=== PATIENT | female | born 1985 | race Caucasian/White ===

== ENCOUNTER 2023-02-25 10:09 | Day surgery (SDC) | payer SELFPAY ==
[2023-02-18 15:13] VITALS: BMI 24.0
[2023-02-25] MEDS ORDERED: MIDAZOLAM HCL 2 MG/2 ML SINGLE DOSE VIAL ONE (10:56)
[2023-02-25] MEDS ORDERED: EPINEPHrine/PF 1 MG/1 ML (1:1,000) AMPULE ONE (11:02)
[2023-02-25] MEDS ORDERED: BUPIVACAINE HCL/PF 0.25% (2.5MG/ML) 10 ML VIAL ONE (11:03)
[2023-02-25] MEDS ORDERED: NITROGLYCERIN 2% OINTMENT - 1GM PACKET TD ONE ×3 (11:03→17:10)
[2023-02-25] MEDS ORDERED: BACITRACIN ZINC 15 GM TUBE TOPICAL OINTMENT ONE (11:03)
[2023-02-25] MEDS ORDERED: HEPARIN NA (PORCINE) 5,000 UNITS/ML 1ML VIAL SQ ONE (11:25)
[2023-02-25] MEDS ORDERED: BUPIVACAINE LIPOSOME/PF (EXPAREL) 266 MG/20 ML VIAL ONE (11:38)
[2023-02-25] MEDS ORDERED: PROPOFOL 20 ML ONE (11:47)
[2023-02-25] MEDS ORDERED: ROCURONIUM BROMIDE 50 MG/5 ML SYRINGE ONE (11:47)
[2023-02-25] MEDS ORDERED: HYDROmorphone HCL/PF 1 MG/ML VIAL ONE ×2 (12:01→12:16)
[2023-02-25] MEDS ORDERED: BUPIVACAINE HCL/PF 0.25% (2.5MG/ML) 10 ML VIAL IJ ONE (13:18)
[2023-02-25] MEDS ORDERED: BUPIVACAINE LIPOSOME/PF (EXPAREL) 266 MG/20 ML VIAL NR ONE (13:18)
[2023-02-25] MEDS ORDERED: SEVOFLURANE 250 ML BTL ONE (13:19)
[2023-02-25] MEDS ORDERED: ceFAZolin SODIUM 1 GM VIAL ONE ×2 (15:43→15:44)
[2023-02-25] MEDS ORDERED: GENTAMICIN SO4 80 MG/2 ML VIAL ONE (15:44)
[2023-02-25] MEDS ORDERED: KETOROLAC TROMETHAMINE 30 MG/1 ML VIAL ONE (16:50)
[2023-02-25] MEDS ORDERED: ONDANSETRON 4 MG/2 ML VIAL ONE (16:50)
[2023-02-25] MEDS ORDERED: SUMAtriptan SUCCINATE 50 MG TABLET PO PRN (17:50)
[2023-02-25] MEDS ORDERED: ONDANSETRON 4 MG/2 ML VIAL IVPB PRN (17:50)
[2023-02-25] MEDS ORDERED: LACTATED RINGERS SOLUTION 1,000 ML IV SCH ×2 (18:00)
[2023-02-25] MEDS ORDERED: PROMETHAZINE HCL 25 MG/1 ML VIAL IVPB PRN (18:00)
[2023-02-25] MEDS: ACETAMINOPHEN 1000 MG/100 ML BAG IVPB PRN (18:00)
[2023-02-25] MEDS ORDERED: oxyCODONE HCL 5 MG TABLET PO PRN (18:00)
[2023-02-25 18:21] LABS: HEMATOCRIT 34.8 % (32.4-45.2); HEMOGLOBIN 11.8 G/dL (10.7-15.3); MCH 30.4 pg (25.7-33.7); MEAN CELL VOLUME 89.4 fl (80-96); MEAN PLT VOLUME 8.4 fl (7.5-11.1); RBC 3.89 10^6/uL (3.60-5.2); WHITE BLOOD COUNT 10.1 10^3/uL (4.0-10.8)
[2023-02-25] MEDS ORDERED: FENTANYL CITRATE/PF 50 MCG/ML VIAL ONE (18:26)
[2023-02-25 18:51] LABS: BLOOD UREA NITROGEN 11.7 mg/dl (7-18); CALCIUM 8.5 mg/dl (8.5-10.1); CREATININE 0.6 mg/dl (0.6-1.3); MAGNESIUM 1.6 mg/dL (1.8-2.4); POTASSIUM 4.1 mmol/L (3.5-5.1)
[2023-02-25] MEDS: oxyCODONE HCL 5 MG TABLET PO PRN (20:04)
[2023-02-25] MEDS: CEFAZOLIN 1 GM in DEXTROSE 5%-WATER - 50 ML IVPB SCH (20:05)
[2023-02-25] MEDS ORDERED: MAGNESIUM 1GM/D5W - 1 GM/100 ML IVPB IVPB ONE (20:15)
[2023-02-26] MEDS: oxyCODONE HCL 5 MG TABLET PO PRN ×3 (00:44→10:26)
[2023-02-26] MEDS: CEFAZOLIN 1 GM in DEXTROSE 5%-WATER - 50 ML IVPB SCH ×2 (03:26→08:51)
[2023-02-26] MEDS ORDERED: HEPARIN NA (PORCINE) 5,000 UNITS/ML 1ML VIAL SQ SCH (08:00)
[2023-02-26] MEDS: ACETAMINOPHEN 1000 MG/100 ML BAG IVPB PRN (08:49)
[2023-02-26 09:15] VITALS: BP 108/78; PULSE 107; RESP 18; TEMP 97.8
== END 2023-02-26 13:49 | disposition home or self-care (01) ==
LOC: FASUSAT 10:09 → FM/S 19:06 → FASUSAT 02-26 13:49
PROVIDERS: ATTEND Plastic Surgery
CPT/HCPCS: 36415; 80048; 82962; 83735; 84100; 84703; 85027; 93005; 93010; 94760; C1781; J1644